=== PATIENT | male | born 2000 | race Caucasian/White ===

== ENCOUNTER → 2021-05-27 | Outpatient (CLI) | payer OTHER ==
[~2021-05-27] MED LIST: BACTROBAN CREAM15 GM TOP
== END ==
LOC: KOH-I 15:21
DX: S29.001A Unspecified injury of muscle and tendon of front wall of thorax, initial encounter (principal)
CPT/HCPCS: 71120

== ENCOUNTER → 2021-08-12 | Outpatient (CLI) | payer OTHER | LOC: KOH-I 13:22 | DX: R09.02 Hypoxemia (principal) | CPT/HCPCS: 71046 ==

== ENCOUNTER 2022-07-15 17:41 | Emergency (ER) | payer OTHER | END 2022-07-15 18:35 | disposition left against medical advice (07) | LOC: ER1 17:41 | DX: Z53.21 Procedure and treatment not carried out due to patient leaving prior to being seen by health care provider (principal) ==